=== PATIENT | female | born 2000 | race Caucasian/White ===

== ENCOUNTER 2019-01-04 09:21 | Emergency (ER) | payer OTHER ==
[~2019-01-04] VITALS: Ht 157.5 cm; Wt 65.0 kg
[2019-01-04 09:24] VITALS: BP 117/78
--- NOTE | 2019-01-04 10:08 | NUR ---
PT TO ROOM WITH STEADY GAIT FROM LOBBY AT THIS TIME.
== END 2019-01-04 11:13 | disposition home or self-care (01) ==
LOC: ED 10:18
DX: S61.212A Laceration without foreign body of right middle finger without damage to nail, initial encounter (principal); J45.909 Unspecified asthma, uncomplicated; W26.0XXA Contact with knife, initial encounter; Y93.89 Activity, other specified; Y92.69 Other specified industrial and construction area as the place of occurrence of the external cause; Y99.8 Other external cause status
CPT/HCPCS: 12001; 99283